=== PATIENT | female | born 1940 | race Caucasian/White ===

== ENCOUNTER 2016-11-27 09:09 | Day surgery (SDC) | payer OTHER, MEDICARE ==
[2016-11-27] MEDS ORDERED: DIPRIVAN VIAL ONE (10:26)
[2016-11-27] MEDS ORDERED: VERSED ONE (10:26)
[2016-11-27] MEDS ORDERED: NS 500 ML IV 500 ML IV ONE (12:37)
[2016-11-27] MEDS ORDERED: TETRACAINE 0.5% OPHTH 1 DOSE AFFEYE ONE ×4 (12:47→15:16)
[2016-11-27] MEDS ORDERED: VIGAMOX 0.5% OPHTH 1 DOSE AFFEYE ONE ×6 (12:50→15:29)
[2016-11-27] MEDS ORDERED: PROLENSA OPHTH 1 DOSE AFFEYE ONE (13:02)
[2016-11-27] MEDS ORDERED: ALPHAGAN-P OPHTH 1 DOSE AFFEYE ONE (13:05)
[2016-11-27] MEDS ORDERED: MYDRIACIL OPHTH 1 DOSE AFFEYE ONE ×3 (13:07→13:12)
[2016-11-27] MEDS ORDERED: AK-DILATE 2.5% OPHTH 1 DOSE OP ONE ×3 (13:07→13:12)
[2016-11-27] MEDS ORDERED: CYCLOGYL 1% OPHTH 1 DOSE OP ONE ×3 (13:07→13:12)
[2016-11-27] MEDS ORDERED: BETADINE OPHTH SOLN 5% EACHEYE ONE (15:02)
[2016-11-27] MEDS ORDERED: BSS OPHTH (PLAIN) 500 ML with VANCOMYCIN HCL 500 MG VIAL 25 MG, ADRENALINE CHL INJ 1 MG IR ONE ×6 (15:09)
[2016-11-27] MEDS ORDERED: DUOVISC IO ONE ×2 (15:10→15:16)
[2016-11-27] MEDS ORDERED: ADRENALINE CHL INJ IJ ONE ×2 (15:10→15:16)
[2016-11-27] MEDS ORDERED: XYLOCAINE-MPF 1% IJ ONE ×2 (15:10→15:16)
[2016-11-27] MEDS ORDERED: KETALAR ONE (15:17)
[2016-11-27] MEDS ORDERED: VISCOAT 0.5 ML IO ONE (15:22)
[2016-11-27 16:52] VITALS: BP 154/82
== END 2016-11-27 15:55 | disposition home or self-care (01) ==
LOC: SURG1 09:09
PROVIDERS: ATTEND Ophthalmology
PROC: 08DK3ZZ Extraction of Left Lens, Percutaneous Approach (ICD-10-PCS; principal; 2016-11-27 21:00)
PROC: 08RK3JZ Replacement of Left Lens with Synthetic Substitute, Percutaneous Approach (ICD-10-PCS; principal; 2016-11-27 21:00)
DX: H25.12 Age-related nuclear cataract, left eye (principal); H25.012 Cortical age-related cataract, left eye
CPT/HCPCS: 99100; A4217; J0170; J2250; J3370; J3490

== ENCOUNTER 2016-12-18 07:48 | Day surgery (SDC) | payer OTHER, MEDICARE ==
[2016-12-18] MEDS ORDERED: NS 500 ML IV 500 ML IV ONE (08:18)
[2016-12-18] MEDS ORDERED: TETRACAINE 0.5% OPHTH 1 DOSE AFFEYE ONE ×2 (08:28→11:22)
[2016-12-18] MEDS ORDERED: VIGAMOX 0.5% OPHTH 1 DOSE AFFEYE ONE ×5 (08:30→11:56)
[2016-12-18] MEDS ORDERED: PROLENSA OPHTH 1 DOSE AFFEYE ONE (08:42)
[2016-12-18] MEDS ORDERED: ALPHAGAN-P OPHTH 1 DOSE AFFEYE ONE (08:43)
[2016-12-18] MEDS ORDERED: CYCLOGYL 1% OPHTH 1 DOSE OP ONE ×3 (08:45→08:50)
[2016-12-18] MEDS ORDERED: AK-DILATE 2.5% OPHTH 1 DOSE OP ONE ×3 (08:45→08:50)
[2016-12-18] MEDS ORDERED: MYDRIACIL OPHTH 1 DOSE AFFEYE ONE ×3 (08:45→08:50)
[2016-12-18] MEDS ORDERED: DIPRIVAN VIAL ONE (09:32)
[2016-12-18] MEDS ORDERED: BETADINE OPHTH SOLN 5% EACHEYE ONE (11:22)
[2016-12-18] MEDS ORDERED: XYLOCAINE-MPF 1% IJ ONE ×2 (11:35→11:44)
[2016-12-18] MEDS ORDERED: DUOVISC IO ONE ×2 (11:35→11:44)
[2016-12-18] MEDS ORDERED: ADRENALINE CHL INJ IJ ONE ×2 (11:35→11:44)
[2016-12-18] MEDS ORDERED: BSS OPHTH (PLAIN) 500 ML with VANCOMYCIN HCL 500 MG VIAL 25 MG, ADRENALINE CHL INJ 1 MG IR ONE ×6 (11:36)
[2016-12-18 13:49] VITALS: BP 140/69
== END 2016-12-18 12:25 | disposition home or self-care (01) ==
LOC: SURG1 07:48
PROVIDERS: ATTEND Ophthalmology
PROC: 08DJ3ZZ Extraction of Right Lens, Percutaneous Approach (ICD-10-PCS; principal; 2016-12-18 11:15)
PROC: 08RJ3JZ Replacement of Right Lens with Synthetic Substitute, Percutaneous Approach (ICD-10-PCS; principal; 2016-12-18 11:15)
DX: H25.11 Age-related nuclear cataract, right eye (principal); H25.011 Cortical age-related cataract, right eye
CPT/HCPCS: 99100; A4217; J0170; J3370; J3490